=== PATIENT | female | born 1950 | race Caucasian/White ===

== ENCOUNTER → 2019-03-27 | Day surgery (SDC) | payer MEDICARE, BC ==
[~2019-03-27] VITALS: Ht 170.2 cm; Wt 97.5 kg
[~2019-03-27] MED LIST: ACETAMINOPHEN 500 MG TAB PO ONE; ACETAMINOPHEN 500 MG TAB PO PRN; ALEN35TA18 PO; ANGIOMAX 250 MG VIAL IV ONE; ASPI-404 PO; ATOR20TA50 PO; GABA100C9 PO; GLIM1TAB3 PO; HEPARIN SODIUM (PORCINE) 5000 UNITS/ML 1ML VIAL ONE; INSU1.2I SC; IODIXANOL 320MG/ML 100ML BTL IV ONE; LIDOCAINE 2%HCL (LOCAL ANESTH.) INJ 20ML MDV ONE; METF-370 PO; MIDAZOLAM HCL 1MG/1ML-2 ML VIAL ONE; SEMA2INJ2 SC; SODIUM CHL 0.9% 0 ML ONE; VERAPAMIL 2.5MG/ML INJ 2ML VIAL IV ONE; fentaNYL CITRATE 100 MCG/2 ML VL ONE
== END | disposition home or self-care (01) ==
LOC: CATH 11:49
PROVIDERS: ATTEND Internal Medicine
DX: I25.10 Atherosclerotic heart disease of native coronary artery without angina pectoris (principal); E78.5 Hyperlipidemia, unspecified; E11.9 Type 2 diabetes mellitus without complications; I10 Essential (primary) hypertension; Z79.82 Long term (current) use of aspirin; Z79.4 Long term (current) use of insulin; Z79.899 Other long term (current) drug therapy
CPT/HCPCS: 93005; 93458; C1769; C1894; J1644; J2250; J3010; Q9967; 99152